=== PATIENT | female | born 1980 | race Caucasian/White ===

== ENCOUNTER 2021-01-25 05:49 | Observation (INO) | payer OTHER, SELFPAY ==
[2019-08-16 11:22] VITALS: BMI 35.0
[2021-01-25] VITALS (16 sets, daily range): BP systolic 92–150; BP diastolic 55–85; PULSE 18–102; RESP 16–18; TEMP 36.3–37.2; O2SAT 93–100; BMI 38.8; BMI 36.8
--- NOTE | 2021-01-25 | GALL_PTH ---
PATIENT: BITA CHAVEZ LOC: MS3 U#:[id number] AGE/SX: 40/F ROOM: GA325 RE01/25/[address]: Dr. Guzman Martel MD : [id number] BED: 1 DIS: 01/26/2021 SPEC #: [id number] RECD: 01/25/21 15:17 STATUS: CB [place] #: [id number] BRITTANY: 01/25/21 00:[address]: Guzman Martel DEPT: SURGICAL PATHOLOGY RECD BY: Saul Burrell ENTERED: 01/28/21 08:42 SP TYPE: DAPHNEY HERNANDEZ DR: Dr. Pankaj Burrell MD Tissues: Gallbladder, NOS Procedures: Surgery Specimen Level III HEADER OPERATION: Laparoscopic cholecystectomy PRE-OP DIAGNOSIS: Cholecystitis TISSUE SUBMITTED: Gallbladder MICROSCOPIC DIAGNOSIS Gallbladder, cholecystectomy: Chronic cholecystitis and cholelithiasis. AM:[place] 01/29/2021 MICROSCOPIC DESCRIPTION Slides are reviewed. GROSS DESCRIPTION Received is one container labeled with the patient's name and designated gallbladder. The specimen consists of a gallbladder measuring 10 cm in length and up to 3 cm in diameter. No kei are noted close to the cystic duct margin. The external surface is pink-sampson, smooth and glistening for the most part. Focally it is granular, hemorrhagic and contains cautery artifact. The gallbladder contains green-yellow mucoid bile and multiple black irregular stones measuring in aggregate 5 x 3.5 x 1 cm and 0.1 to 0.5 cm in greatest dimension. The mucosa is bile-stained and without any mass lesions. The gallbladder wall measures up to 0.3 cm in thickness. Quality Control Analyst sections from the gallbladder and the cystic duct are submitted in one cassette. / SJ:rg 01/28/21 TC:3 CPT: 82735
--- NOTE | 2021-01-25 06:04 | US_ITS ---
STUDY: ABDOMINAL ULTRASOUND - RIGHT UPPER QUADRANT REASON FOR VISIT: Female, 40 years old PAIN TECHNIQUE: Ultrasound evaluation of the right upper quadrant was performed with real-time and static lucas-scale imaging. TECHNICAL QUALITY: Adequate. COMPARISON: None. FINDINGS: Liver: The liver measures 21.1. cm. There is increased echogenicity consistent with fatty infiltration. There is relative sparing adjacent to the gallbladder fossa. The bile ducts are within normal limits. There is hepatic color flow. The direction of portal flow is hepatopetal. There is no demonstrated mass lesion. Gallbladder: There is distended gallbladder. The gallbladder wall measures 3 mm. There is a positive sonographic Burgos''s sign. There is no pericholecystic fluid. There are multiple echogenic structures within the gallbladder, consistent with multiple gallstones. Common Bile Duct (C.B.D.): The common bile duct measures 5 mm. Pancreas: Normal size of the head, body and tail of the pancreas. There is normal echogenicity of the pancreas. There is no demonstrated pancreatic mass or cyst. Right Kidney: Normal size of the right kidney. The right kidney measures 13.0 cm. Normal renal cortex. The right cortex measures 2.5 cm. There is no demonstrated renal mass or cyst. There is 0.6 cm echogenic shadowing stone. There is no right hydronephrosis. US/Gallbladder IMPRESSION: Cholecystitis multiple gallstones and focal tenderness. Hepatomegaly. Fatty infiltration of the liver. Right renal stone. No hydronephrosis. Electronically Signed: Clarke Kang MD at 8:58 EDT , Service support ,
--- NOTE | 2021-01-25 06:06 | EDS_ITS ---
HPI HPI - GI History of Present Illness Chief Complaint: Abd Pain Narrative Narrative: 40-year-old female presenting with right upper quadrant pain. She states she was eating a hero have sob with chicken, cheese, mushrooms and then about an hour later she started developed right upper quadrant pain. She states she has associated symptoms of nausea without vomiting. She does state the pain radiates to the back and even radiates to the left side of her back. Patient has no history of gallbladder disease. She is a family history of kidney stones. She denies urinary symptoms. She denies history of kidney stones in herself. [facility] Medical History Elevated blood pressure, situational Gestational diabetes HISTORY OF CHILD Home Medications azithromycin 250 mg tablet See Rx Instructions PO .COMPLEX #6 tab 08/16/19 [Rx Last Taken Unknown] lisinopril 20 mg PO DAILY 01/25/21 [History Last Taken Unknown] Allergy/AdvReac Type Severity Reaction Status Date / Time albuterol sulfate Allergy Unknown Verified 01/25/21 05:50 [From Ventolin HFA] amoxicillin trihydrate Allergy Unknown Verified 01/25/21 05:50 [From Augmentin] potassium clavulanate Allergy Unknown Verified 01/25/21 05:50 [From Augmentin] Social History Smoking Status: Never smoker alcohol intake: never ROS ROS ED Constitutional Constitutional ED: Denies chills or fever(s) ENT ENT ED: Denies rhinorrhea or sore throat Cardiovascular Cardiovascular: Denies chest pain or palpitations Respiratory/Chest Respiratory/Chest: Denies cough or dyspnea Gastrointestinal Gastrointestinal: Reports abdominal pain and nausea Genitourinary Genitourinary ED: Denies dysuria or hematuria Musculoskeletal Musculoskeletal: Denies arthralgias or myalgias Integumentary Denies Abrasions or rash Neurologic Neurologic: Denies headache(s) or paresthesias Psychiatric Psychiatric: Denies anxiety or depression EXAM Physical Exam Const Vital Signs: 01/25/21 05:51 Temperature 98.8 F Temperature Source Oral Pulse Rate 102 H Respiratory Rate 16 Blood Pressure 150/77 H Blood Pressure Mean 101 Pulse Ox 95 Oxygen Delivery Method Room Air Positive obese General Appearance ED: NAD Nutritional Appearance: obese HEENT Reports moist mucous membranes normocephalic and atraumatic Eyes PERRL and EOMs intact bilaterally General Eye ED: Negative for scleral icterus Resp normal respiratory effort and clear to auscultation bilaterally Cardio regular rate and regular rhythm GI Palpation: tender Burgos's sign Back/Spine no CVA tenderness Neuro Sensorium / Orientation: alert, oriented to person, oriented to place and oriented to time Psych mental status grossly normal and thought process normal Skin Lesions: no lesions Rashes: no rashes MDM MDM MDM Narrative Medical decision making narrative: Patient presenting with right upper quadrant pain. She does not have CVA tenderness on exam. She is not complaining of any urinary complaints. Patient states her pain at occurred about an hour after eating a sublast evening. Patient complains of pain and nausea. She is given morphine and Zofran. Work-up is ordered. Patient has 11.4 white blood cell count but it appears unchanged from previous as he always has an elevated white blood cell count. Currently her only lab back is a urinalysis which shows 500 leukocyte esterase, 10-25 WBCs, 0-5 squamous epithelial cells and 2+ bacteria. Patient does again deny urinary complaints. CMP and lipase are pending. Right upper quadrant ultrasound is pending. Patient signed out to incoming ED doc for follow-up. Lab Data Labs: Laboratory Results - last 24 hr 01/25/21 01/25/21 06:27 06:46 WBC 11.4 H RBC 5.32 Hgb 14.8 Hct 45.6 MCV 85.7 MCH 27.8 MCHC 32.5 RDW Std Deviation 39.8 RDW Coeff of Zuri 12.8 Plt Count 278 MPV 10.5 Immature Gran % (Auto) 0.400 Neut % (Auto) 77.7 H Lymph % (Auto) 14.6 L [place] % (Auto) 6.1 Eos % (Auto) 0.8 Baso % (Auto) 0.4 Absolute Neuts (auto) 8.9 H Absolute Lymphs (auto) 1.67 Nucleated RBC % 0 Urine Color Yellow Urine Clarity Clear Urine pH 7.0 Ur Specific [place] 1.005 Urine Protein Negative Urine Glucose (UA) Normal Urine Ketones Negative Urine Occult Blood 25 H Urine Nitrite Negative Urine Bilirubin Negative Urine Urobilinogen Normal Ur Leukocyte Esterase 500 H Urine RBC 0-5 SEEN Urine WBC 10-25 SEEN Ur Squamous Epith Cells 0-5 SEEN Urine Bacteria 2+ Urine Mucus 0 SEEN Urine Test Negative Discharge Plan Triage Chief Complaint: Abd Pain ED Provider: Geuvara Nuno Dx/Rx/DC Orders Prescriptions: No Action azithromycin 250 mg tablet See Rx Instructions PO .COMPLEX Qty: 6 RF: 0 lisinopril 20 mg Tablet 20 mg PO DAILY RF: 0 Primary Care Provider: Pankaj Burrell
[2021-01-25] MEDS: Ondansetron 4 MG/2 ML Vial IV ×2 (06:29→21:28)
[2021-01-25] MEDS: Morphine 4 MG/ML Syringe IV (06:29)
[2021-01-25 06:37] LABS: Mucous, Urine 0 SEEN /hpf (<or=2+)
[2021-01-25 06:50] LABS: Color, Urine Yellow (Yellow); Glucose, Dipstick Normal (Normal); Ketone-Dipstick Negative (Negative); Leukocyte Esterase-Dipstick 500 /ul (Negative); Nitrite-Dipstick Negative (Negative); Occult Blood-Urine 25 /ul (Negative); Protein-Dipstick Negative (Negative); Specific Gravity, Urine 1.005 (1.002-1.030); Urine Bilirubin Dipstick Negative (Negative); Urine Clarity Clear (Clear); Urine Urobilinogen Normal (Normal)
[2021-01-25 06:55] LABS: Internal QC Validated? YES +Cl - CLEAR BKGD; Pregnancy, Urine Negative Negative
[2021-01-25 06:59] LABS: Bacteria 2+ /hpf (None Seen); Red Blood Cells-Urine 0-5 SEEN /hpf (0-5); Squamous Epithelial Cells - UA 0-5 SEEN /hpf (5-10); White Blood Cells 10-25 SEEN /hpf (0-5)
[2021-01-25 06:59] LABS: Absolute Lymphocyte Count 1.67 X10^3/uL (0.83-4.51); Absolute Neutrophil Count 8.9 X10^3/uL (2.0-7.7); Basophil# 0.04 X10^3/uL; Basophil% 0.4 % (0-1); Eosinophil# 0.09 X10^3/uL; Eosinophils% 0.8 % (0-5); Hematocrit 45.6 % (37-47); Hemoglobin 14.8 g/dL (12.0-15.0); Lymphocyte # 1.67 X10^3/ul (0.83-4.51); Lymphocyte % 14.6 % (19-41); Mean Corp Hgb Conc 32.5 g/dL (32-36); Mean Corpuscular Hgb 27.8 pg (27.0-32.0); Mean Corpuscular Volume 85.7 fL (81-99); Mean Platelet Vol. 10.5 fl (6.2-12.0); Monocyte% 6.1 % (0-10); NRBC Flagged by Analyzer 0 % (0-5); Neutrophil # 8.86 X10^3/uL (2.7-7.7); Neutrophil % 77.7 % (47-70); Platelet Count 278 K/mm3 (150-450); RBC Distribution Width CV 12.8 % (11.6-14.6); RBC Distribution Width SD 39.8 fl (35.1-43.9); Red Blood Count 5.32 M/mm3 (4.2-5.4); White Blood Count 11.4 K/mm3 (4.4-11.0)
[2021-01-25 07:20] LABS: ALB/GLOB Ratio 1.1 RATIO (0.9-2.4); AST(SGOT) 296 U/L (15-37); Alanine Aminotransfer ALT/SGPT 269 U/L (13-56); Albumin, Serum 3.7 g/dL (3.2-5.0); Alkaline Phosphatase 61 U/L (45-117); Anion Gap 7 (5-15); BUN 10 mg/dL (7-18); BUN/Creat Ratio 16.1 RATIO (10-20); Calcium,Total 8.9 mg/dL (8.5-10.1); Chloride 107 mmol/L (98-107); Creatinine, Serum 0.62 mg/dL (0.55-1.02); EST Glomerular Filtration Rate 113 mL/min (>60); Est Glom Filt Rate - Afr Amer 137 mL/min (>60); Estimated Creatinine Clearance 122.89 ml/min; Globulin 3.3 g/dL (2.2-4.2); Glucose 126 mg/dL (74-106); Lipase 142 U/L (73-393); Potassium 3.8 mmol/L (3.5-5.1); Sodium Level 139 mmol/L (136-145)
[2021-01-25] MEDS: metroNIDAZOLE 500 MG/100 ML BAG 100 MG IV ×2 (10:12→23:11)
--- NOTE | 2021-01-25 11:14 | EKG12_ITS ---
Test Reason : PRE OP Blood Pressure : / mmHG Vent. Rate : 074 BPM Atrial Rate : 074 BPM P-R Int : 138 ms QRS Dur : 092 ms QT Int : 394 ms P-R-T Axes : -26 046 035 degrees QTc Int : 437 ms Normal sinus rhythm Normal ECG No previous ECGs available Confirmed by DANII ABRAHAM, MARIA FERNANDA ([id number]), commercial production editor JS WANG ([id number]) on 01/29/2021 9:55:45 AM Referred By: LAI Confirmed By:MARIA FERNANDA FOY MD
--- NOTE | 2021-01-25 12:30 | NURSING ---
Patient off unit to AC at this time.
--- NOTE | 2021-01-25 12:37 | NURSING ---
Spoke with Rosangela in AC and let her know patient needs to have the dose of Cipro hanging out on the SEP. Dr. Martel states he wants her to have this prior to OR.
[2021-01-25] MEDS: Ciprofloxacin 400 MG/200 ML BAG 200 MG IV ×2 (12:46→21:29)
[2021-01-25] MEDS: 0.9% Normal Saline 1,000 ML 75 ML IV ×3 (13:00→23:13)
--- NOTE | 2021-01-25 13:59 | CON.PCM.SX_ITS ---
Assessment & Plan Assessment/Plan (1) Calculus of gallbladder with acute cholecystitis: QUALIFIERS: Biliary obstruction: without biliary obstruction Qualified Code(s): K80.00 - Calculus of gallbladder with acute cholecystitis without obstruction PLAN: Plan is to perform a laparoscopic cholecystectomy. Risk benefits to the procedure to include bleeding infection possible bile leak possible blood clots heart attacks pneumonia strokes up to including of all been reviewed with the patient and her . All their questions asked were answered and they were willing to proceed. HPI Consult Data Date of Consult: 01/25/21 HPI Narrative HPI Narrative: BITA CHAVEZ, is a 40-year-old female presenting with right upper quadrant pain. She states she was eating a hero have sob with chicken, cheese, mushrooms and then about an hour later she started developed right upper quadrant pain. She states she has associated symptoms of nausea without vomiting. She does state the pain radiates to the back and even radiates to the left side of her back. Patient has no history of gallbladder disease. She is a family history of kidney stones. She denies urinary symptoms. She denies history of kidney stones in herself. [facility] Medical History (Updated 01/25/21 @ 14:[address] Guzman Martel MD) Elevated blood pressure, situational Gestational diabetes HISTORY OF CHILD Home Medications azithromycin 250 mg tablet See Rx Instructions PO .COMPLEX #6 tab 08/16/19 [Rx Last Taken Unknown] lisinopril 20 mg PO QHS 01/25/21 [History Last Taken 01/24/21 22:00] Allergy/AdvReac Type Severity Reaction Status Date / Time albuterol sulfate Allergy Unknown Verified 01/25/21 05:50 [From Ventolin HFA] amoxicillin trihydrate Allergy Unknown Verified 01/25/21 05:50 [From Augmentin] potassium clavulanate Allergy Unknown Verified 01/25/21 05:50 [From Augmentin] Social History Smoking Status: Never smoker alcohol intake: never ROS Constitutional Constitutional: Denies anorexia or chills Cardiovascular Cardiovascular: Denies chest pain or chest pain at rest Respiratory/Chest Respiratory/Chest: Denies cough or dyspnea Gastrointestinal Gastrointestinal: Reports abdominal pain Physical Exam Const alert and oriented x3 General Appearance: cooperative HEENT normocephalic and head/scalp atraumatic Eyes PERRL and EOMs intact bilaterally Resp clear to auscultation bilaterally Cardio Rate: regular rate Rhythm: regular rhythm GI soft to palpation Palpation: tender RUQ Lab / Micro Data Result Diagrams: 01/25/21 06:46 01/25/21 06:46 Labs: Laboratory Results - last 24 hr 01/25/21 06:27: Urine Color Yellow, Urine Clarity Clear, Urine pH 7.0, Ur Specific [place] 1.005, Urine Protein Negative, Urine Glucose (UA) Normal, Urine Ketones Negative, Urine Occult Blood 25 H, Urine Nitrite Negative, Urine Bilirubin Negative, Urine Urobilinogen Normal, Ur Leukocyte Esterase 500 H, Urine RBC 0-5 SEEN, Urine WBC 10-25 SEEN, Ur Squamous Epith Cells 0-5 SEEN, Urine Bacteria 2+, Urine Mucus 0 SEEN, Urine Test Negative 01/25/21 06:46: WBC 11.4 H, RBC 5.32, Hgb 14.8, Hct 45.6, MCV 85.7, MCH 27.8, MCHC 32.5, RDW Std Deviation 39.8, RDW Coeff of Zuri 12.8, Plt Count 278, MPV 10.5, Immature Gran % (Auto) 0.400, Neut % (Auto) 77.7 H, Lymph % (Auto) 14.6 L, [place] % (Auto) 6.1, Eos % (Auto) 0.8, Baso % (Auto) 0.4, Absolute Neuts (auto) 8.9 H, Absolute Lymphs (auto) 1.67, Nucleated RBC % 0 01/25/21 06:46: Sodium 139, Potassium 3.8, Chloride 107, Carbon Dioxide 25.0, Anion Gap 7, BUN 10, Creatinine 0.62, Estim Creat Clear Calc 122.89, Est GFR (MDRD) Af Amer 137, Est GFR (MDRD) Non-Af 113, BUN/Creatinine Ratio 16.1, Glucose 126 H, Calcium 8.9, Total Bilirubin 1.40 H, AST 296 H, ALT 269 H, Alkaline Phosphatase 61, Total Protein 7.0, Albumin 3.7, Globulin 3.3, Albumin/Globulin Ratio 1.1, Lipase 142 Radiology Impression Gallbladder Ultrasound 01/25/21 06:04 IMPRESSION: Cholecystitis multiple gallstones and focal tenderness. Hepatomegaly. Fatty infiltration of the liver. Right renal stone. No hydronephrosis. Electronically Signed: Clarke Kang MD at 8:58 EDT , Service support ,
[2021-01-25] MEDS: Lactated Ringers 1,000 ML 100 ML IV (14:45)
[2021-01-25] MEDS: Bupivacaine Mpf 0.5% 30 ML VIAL (15:07)
--- NOTE | 2021-01-25 15:27 | PCM.OPRPT ---
Problems Associated Problem List Diagnoses (1) Calculus of gallbladder with acute cholecystitis: Report of Operation Date of Procedure: 01/25/21 Pre-Operative Diagnosis: Acute cholecystitis with cholelithiasis Post-Operative Diagnosis: Same Surgery/Procedure Performed:: Laparoscopic cholecystectomy Surgeon: Guzman Martel Type of Anesthesia: General Anesthesiologist: Toy Clark Specimen's removed: Gallbladder Estimated Blood Loss (mL): < 25 cc Description of Procedure: Patient was brought into the operating room. Placed in the supine position. Under excellent general endotracheal ovation abdomen was sterilely prepped and draped in usual fashion. Local was injected above the umbilicus. Curvilinear incision was made dissection was carried down to the fascia the fascia was grasped with Delmar varies needle was placed inside the abdomen the abdomen was insufflated to 15 torr. Patient was placed in the head up position rotated to the left. A subxiphoid #5 trocar was placed, inferior to this another #5 trocar was placed, laterally a #5 trocar was placed. All these under direct visualization without injury to underlying structures. I grabbed the fundus of the gallbladder and retracted in the cephalad direction there was some firmness to the gallbladder but overall it was soft very early acute cholecystitis infundibulum was grasped retracted laterally I dissected down towards the cystic duct it was dissecting in a deep hole I did not feel comfortable doing this I dissected what I thought was the cystic artery and cystic duct but then a larger structure to the right which I thought was going to be the right hepatic artery I thought the better part of valor here was to just do this dome down. I stopped the dissection here I went and grasped the falciform ligament and then started from the dome down and used electrocautery to detach the gallbladder from the liver edge. At some point residential coming down I released the falciform ligament and I placed a #5 liver retractor in so that I could get better access to the junction of the liver and the gallbladder this worked out quite nice I dissected all the way down once I got down to the area that was difficult I knew I was not going to be able to shoot a cholangiogram I thought that the best thing to do here was placed looped 0 Vicryl ties down around the cystic duct I placed 2 of these and then transected the gallbladder. I had not lost a lot of blood I was worried that if I dissected any further down here I was going to cause injury and I just did not want to do that. Gallbladder was placed in a specimen bag was delivered through the umbilical port without difficulty. Multiple small stones were located within the gallbladder itself. I inspected my ties they were in good no signs of bleeding I did not see anything that looked like a bile leak and I felt that I was far enough away from the common bile duct at this juncture. I removed my trochars. Thornton stasis was noted. I closed the fascia of the umbilical port with a [id number] stitch of 0 Vicryl. Subcu here was closed with 3-0 Vicryl. Skin was closed with interrupted 4-0 Monocryl. Steri-Strips were applied sterile dressings were applied and the patient tolerated the procedure well. She will be admitted to the hospital. I am going to check liver function test on her tomorrow if her total bilirubin is elevated in addition to the alkaline phosphatase again I have to work her up for retained stone. I discussed all this with the . Due to her size I am going to start her on subcu Lovenox postoperatively. Admit VTE Documentation VTE Present on Admission: No VTE Mechan Device Prophylaxis: SCD's VTE Pharm Prophylaxis ordered?: No Reason prophylaxis not ordered:: Treatment Not Indicated
[2021-01-25] MEDS: HYDROmorphone 0.5 MG/0.5 ML SYRINGE IV (21:28)
[2021-01-25] MEDS: 0.9% Saline Lock 10 ML Syringe IV (21:29)
[2021-01-26 01:00] VITALS: TEMP 37.2
[2021-01-26 01:43] VITALS: BP 97/82; PULSE 70; RESP 16; TEMP 37.7; O2SAT 96
[2021-01-26] MEDS: metroNIDAZOLE 500 MG/100 ML BAG 100 MG IV (06:00)
[2021-01-26 06:03] VITALS: BP 101/62; PULSE 81; RESP 16; TEMP 37.3; O2SAT 95
[2021-01-26 06:35] LABS: Absolute Lymphocyte Count 2.84 X10^3/uL (0.83-4.51); Absolute Neutrophil Count 8.5 X10^3/uL (2.0-7.7); Basophil# 0.06 X10^3/uL; Basophil% 0.5 % (0-1); Eosinophils% 0.8 % (0-5); Hematocrit 45.9 % (37-47); Hemoglobin 14.6 g/dL (12.0-15.0); Lymphocyte # 2.84 X10^3/ul (0.83-4.51); Lymphocyte % 23.1 % (19-41); Mean Corp Hgb Conc 31.8 g/dL (32-36); Mean Corpuscular Hgb 27.8 pg (27.0-32.0); Mean Corpuscular Volume 87.3 fL (81-99); Mean Platelet Vol. 10.9 fl (6.2-12.0); Monocyte# 0.74 X10^3/uL; NRBC Flagged by Analyzer 0 % (0-5); Neutrophil # 8.51 X10^3/uL (2.7-7.7); Neutrophil % 69.3 % (47-70); Platelet Count 268 K/mm3 (150-450); RBC Distribution Width CV 13.2 % (11.6-14.6); RBC Distribution Width SD 41.7 fl (35.1-43.9); Red Blood Count 5.26 M/mm3 (4.2-5.4); White Blood Count 12.3 K/mm3 (4.4-11.0)
[2021-01-26 06:45] LABS: International Normalized Ratio 1.1; Prothrombin Time (Protime)PT. 13.4 SECONDS (11.7-14.9)
[2021-01-26 07:09] LABS: AST(SGOT) 186 U/L (15-37); Alanine Aminotransfer ALT/SGPT 427 U/L (13-56); Albumin, Serum 3.4 g/dL (3.2-5.0); Alkaline Phosphatase 73 U/L (45-117); Amylase 37 U/L (25-115); Anion Gap 7 (5-15); BUN 6 mg/dL (7-18); BUN/Creat Ratio 10.7 RATIO (10-20); Calcium,Total 8.4 mg/dL (8.5-10.1); Chloride 109 mmol/L (98-107); Creatinine, Serum 0.56 mg/dL (0.55-1.02); EST Glomerular Filtration Rate 127 mL/min (>60); Est Glom Filt Rate - Afr Amer 154 mL/min (>60); Estimated Creatinine Clearance 136.06 ml/min; Globulin 3.4 g/dL (2.2-4.2); Glucose 91 mg/dL (74-106); Lipase 81 U/L (73-393); Potassium 3.5 mmol/L (3.5-5.1); Protein, Total 6.8 g/dL (6.4-8.2); Sodium Level 139 mmol/L (136-145)
[2021-01-26] MEDS: oxyCODONE 5 MG Tablet PO (07:39)
--- NOTE | 2021-01-26 09:55 | DCINST_ITS ---
Discharge Instructions Procedure Gallbladder Diet Discharge Diet: Light diet - advance as tolerated Activity Discharge Activity: May Not Drive (for 2-3 days or while taking narcotic pain medications.) and - (Do not drive, work heavy equipment or sign legal documents for 24 hours.) May shower in (days): 1 (with the bandage in place.) Additional Activity Instructions:: Pain medication may cause nausea. You should typically eat light foods as you take your pain medications. Pain medication may also cause constipation. If this is a problem for you, please discuss with your doctor. Dressing / Incision Call your doctor if your incision/area has: Continuous Slow Oozing, Sudden Increased Bleeding, Increased Pain/ Swelling, Increased Redness and Foul Smelling Discharge Call your doctor if you observe: Fever of 101 or Higher Suture Line Care: Avoid Pulling/Pushing and Avoid Pinching/Bending Additional Dressing/Incision Instructions:: Leave operative bandaids on for 2 days. When you remove dressing, leave Steri-Strips on until your follow-up appointment, or until the Steri-Strips fall off on their own. Follow Up Care Please Follow Up With: Consuelo Alegria PA-C When: Call office to schedule an appointment to be seen in 7 days after surgery. Test Results: Test results from this visit will be discussed in further detail at your follow-up appointment, if applicable. Discharge Plan Admission Admit Date/Time: 01/25/21 15:40 Attending Provider: Guzman Martel Primary Care Provider: Pankaj Burrell Discharge Orders/Prescriptions Prescriptions: New oxycodone-acetaminophen [Percocet] 5-325 mg tablet 1 tab PO Q4H PRN (Reason: pain) 5 Days Qty: 20 RF: 0 Continued azithromycin 250 mg tablet See Rx Instructions PO .COMPLEX Qty: 6 RF: 0 lisinopril 20 mg Tablet 20 mg PO QHS RF: 0 Referrals / Follow Up: Pankaj Burrell MD [Primary Care Provider] - Consuelo Alegria PA-C [PHYSICIAN PRODUCT SAFETY TECHNICAL ASSISTANT] -
--- NOTE | 2021-01-26 09:56 | PCM.DC.SUM ---
Providers Date of Admission: 01/25/21 Primary Care Physician: Dr. Pankaj Burrell MD Reason For Visit: CALCULOUS CHOLECYSTITIS Diagnosis Discharge Diagnosis (1) Calculus of gallbladder with acute cholecystitis: Status: Acute Code(s): K80.00 - Calculus of gallbladder with acute cholecystitis without obstruction Qualifiers: Biliary obstruction: without biliary obstruction Qualified Code(s): K80.00 - Calculus of gallbladder with acute cholecystitis without obstruction Medications at Discharge Home Medications azithromycin 250 mg tablet See Rx Instructions PO .COMPLEX #6 tab 08/16/19 lisinopril 20 mg PO QHS 01/25/21 oxycodone-acetaminophen [Percocet] 1 tab PO Q4H PRN 5 Days #20 tab 01/26/21 Weight / BMI Weight Weight: 242 lb 8 oz Body Mass Index (BMI) 36.8 ABG / Lab / Microbiology Data Result Diagrams: 01/26/21 05:15 01/26/21 05:15 Laboratory: Laboratory Results - last 24 hr 01/26/21 05:15: WBC 12.3 H, RBC 5.26, Hgb 14.6, Hct 45.9, MCV 87.3, MCH 27.8, MCHC 31.8 L, RDW Std Deviation 41.7, RDW Coeff of Zuri 13.2, Plt Count 268, MPV 10.9, Immature Gran % (Auto) 0.300, Neut % (Auto) 69.3, Lymph % (Auto) 23.1, [place] % (Auto) 6.0, Eos % (Auto) 0.8, Baso % (Auto) 0.5, Absolute Neuts (auto) 8.5 H, Absolute Lymphs (auto) 2.84, Nucleated RBC % 0 01/26/21 05:15: PT 13.4, INR 1.1 01/26/21 05:15: Sodium 139, Potassium 3.5, Chloride 109 H, Carbon Dioxide 23.0, Anion Gap 7, BUN 6 L, Creatinine 0.56, Estim Creat Clear Calc 136.06, Est GFR (MDRD) Af Amer 154, Est GFR (MDRD) Non-Af 127, BUN/Creatinine Ratio 10.7, Glucose 91, Calcium 8.4 L, Total Bilirubin 1.00, AST 186 H, ALT 427 H, Alkaline Phosphatase 73, Total Protein 6.8, Albumin 3.4, Globulin 3.4, Albumin/Globulin Ratio 1.0, Amylase 37, Lipase 81 D/C Instructions Discharge Diet: Light diet - advance as tolerated May shower in (days): 1 (with the bandage in place.) Additional Activity Instructions: Pain medication may cause nausea. You should typically eat light foods as you take your pain medications. Pain medication may also cause constipation. If this is a problem for you, please discuss with your doctor. Call your doctor if your incision/area has: Continuous Slow Oozing, Sudden Increased Bleeding, Increased Pain/ Swelling, Increased Redness and Foul Smelling Discharge Call your doctor if you observe: Fever of 101 or Higher Suture Line Care: Avoid Pulling/Pushing and Avoid Pinching/Bending Additional Dressing/Incision Instructions: Leave operative bandaids on for 2 days. When you remove dressing, leave Steri-Strips on until your follow-up appointment, or until the Steri-Strips fall off on their own. Please Follow Up With: Consuelo Alegria PA-C When: Call office to schedule an appointment to be seen in 7 days after surgery. Meaningful Use Info Meaningful Use Diagnoses (Choose all that apply): None applicable Discharge Plan Admission Admit Date/Time: 01/25/21 15:40 Attending Provider: Guzman Martel Primary Care Provider: Pankaj Burrell Discharge Orders/Prescriptions Prescriptions: New oxycodone-acetaminophen [Percocet] 5-325 mg tablet 1 tab PO Q4H PRN (Reason: pain) 5 Days Qty: 20 RF: 0 Continued azithromycin 250 mg tablet See Rx Instructions PO .COMPLEX Qty: 6 RF: 0 lisinopril 20 mg Tablet 20 mg PO QHS RF: 0 Referrals / Follow Up: Pankaj Burrell MD [Primary Care Provider] - Consuelo Alegria PA-C [PHYSICIAN [employer]ER[employer]S] -
[2021-01-26] MEDS: Ciprofloxacin 400 MG/200 ML BAG 200 MG IV (10:27)
[2021-01-26 12:35] VITALS: BP 126/76; PULSE 85; RESP 16; TEMP 36.7; O2SAT 96
== END 2021-01-26 13:35 | disposition home or self-care (01) ==
LOC: ED 10:08 → MS3 15:56
PROVIDERS: Admitting Provider Surgery; Emergency Provider Student in an Organized Health Care Education/Training Program; PCP Family Medicine; Visit Provider Surgery
PROC: (CPT 47562; principal; 2021-01-25 13:55)
DX: K80.12 Calculus of gallbladder with acute and chronic cholecystitis without obstruction (principal); R03.0 Elevated blood-pressure reading, without diagnosis of hypertension; Z79.899 Other long term (current) drug therapy
CPT/HCPCS: 47562; 36415; 76705; 80053; 81001; 81025; 82150; 83690; 85025; 85610; 88304; 93005; 96361; 96365; 96366; 96367; 96375; 96376; 99218; 99251; 99285; J7030; J7120; A4216; G0378; G0463; J0744; J2405

== ENCOUNTER 2023-05-17 08:16 | Emergency (ER) | payer OTHER, SELFPAY ==
[2023-05-17 08:17] VITALS: BP 143/97; PULSE 94; RESP 16; TEMP 36.4; O2SAT 96; BMI 38.0
--- NOTE | 2023-05-17 09:04 | RAD_ITS ---
STUDY: X-RAY - PELVIS REASON FOR EXAM: Female, 42 years old. injury TECHNIQUE: One view of the pelvis was obtained. COMPARISON: None. FINDINGS: There is a non-specific bowel gas pattern. Normal visualized soft tissue structures. Normal bilateral iliac wings, sacroiliac joints and visualized sacrum. Normal visualized bilateral superior and inferior pubic rami. Normal pubic symphysis. Normal ischial tuberosities. Normal visualized right femoral head. Normal right acetabulum. Normal right hip joint. Normal visualized left femoral head. Normal left acetabulum. Normal left hip joint. RAD/Pelvis 1 or 2 Views IMPRESSION: Normal x-ray examination of the pelvis. Electronically Signed: Soto Delcid MD at 10:15 [facility] ,
--- NOTE | 2023-05-17 09:56 | EDS_ITS ---
HPI History of Present Illness Chief Complaint: Lower Extremity Injury Informant: patient and family Narrative Narrative: 42-year-old female states that last night she was going up the stairs when her foot slipped and she fell down. She states that she had pain posterior right hamstring lower buttock region. She was able to ambulate when she woke up this morning the pain was worse. She notes it radiates down her leg to her right big toe. She denies any significant bruising or swelling. She denies any muscle strength loss. No paresthesias. No bowel or bladder dysfunction. PFSH PFS Medical History Elevated blood pressure, situational Gestational diabetes HISTORY OF CHILD Home Medications azithromycin 250 mg tablet See Rx Instructions PO .COMPLEX #6 tabs 08/16/19 [Rx Last Taken Unknown] oxycodone-acetaminophen 5 mg-325 mg tablet (Percocet) 1 tab PO Q4H PRN pain 5 days #20 tabs 01/26/21 [Rx Last Taken Unknown] lisinopril 30 mg tablet 30 mg PO DAILY 08/23/21 [History Last Taken Unknown] cyclobenzaprine 10 mg tablet 10 mg PO TID PRN Muscle Spasm #15 TABLETS 05/17/23 [Rx Last Taken Unknown] oxycodone-acetaminophen 5 mg-325 mg tablet 1 tab PO Q6H PRN PRN Pain 3 days #12 TABLETS 05/17/23 [Rx Last Taken Unknown] Allergy/AdvReac Type Severity Reaction Status Date / Time albuterol sulfate Allergy Unknown Verified 05/17/23 08:17 [From Ventolin HFA] amoxicillin trihydrate Allergy Unknown Verified 05/17/23 08:17 [From Augmentin] potassium clavulanate Allergy Unknown Verified 05/17/23 08:17 [From Augmentin] Social History Smoking Status: Never smoker alcohol intake: never ROS ROS ED Constitutional Constitutional ED: Denies chills or weight loss Eyes Eyes: Denies change in vision or diplopia ENT ENT ED: Denies ear pain, rhinorrhea or sore throat Cardiovascular Cardiovascular: Denies chest pain, orthopnea, palpitations or racing heartbeat Respiratory/Chest Respiratory/Chest: Denies cough, dyspnea or orthopnea Gastrointestinal Gastrointestinal: Denies abdominal pain, diarrhea, nausea or vomiting Genitourinary Genitourinary ED: Denies dysuria, hematuria or urinary frequency Musculoskeletal Musculoskeletal: Reports other Details: See history of present illness ; Denies arthralgias, back pain or myalgias Integumentary Denies abscess or rash Neurologic Neurologic: Denies headache(s) or weakness Psychiatric Psychiatric: Denies anxiety, depression, suicidal ideation or suicidal thoughts Endocrine Endocrinology: Denies polydipsia, polyphagia or polyuria Allergic/Immunologic Allergic/Immunologic ED: Denies mouth swelling, tongue swelling or urticaria EXAM Physical Exam Const Vital Signs: 05/17/23 08:17 Temperature 97.6 F L Temperature Source Temporal Pulse Rate 94 Respiratory Rate 16 Blood Pressure 143/97 H Blood Pressure Mean 112 Pulse Ox 96 Oxygen Delivery Method Room Air Positive well nourished, well developed and obese General Appearance ED: well developed Nutritional Appearance: obese HEENT Reports normocephalic, head/scalp atraumatic and moist mucous membranes Eyes PERRL and EOMs intact bilaterally Neck no lymphadenopathy, supple and no JVD Resp normal respiratory effort and clear to auscultation bilaterally Cardio regular rate, regular rhythm and no murmurs GI normal to inspection, nondistended, normoactive bowel sounds and non-tender Palpation: soft Back/Spine no CVA tenderness and normal ROM Back/Spine Narrative: Specifically there is no lumbar paraspinal musculature tenderness. Nose midline tenderness. Extremity Extremity Narrative: Patient has tenderness to palpation of the proximal upper posterior right thigh lower right gluteal thigh interface. +2 patellar and Achilles reflexes. Sensation intact. General Extremety ED: Negative for edema General Extremity: Negative for edema Neuro oriented x3 and CN's II-XII intact bilaterally Sensorium / Orientation: alert Motor Exam: strength 5/5 throughout Psych mental status grossly normal Mood & Affect: Negative for depressed or tearful Skin no rashes or lesions noted and no wounds MDM MDM MDM Narrative Medical decision making narrative: My independent interpretation of the pelvis x-ray is no acute fracture. Clinically I think this is musculoskeletal in nature. There is a radicular component questionable due to muscular spasm. Would recommend heat anti- inflammatory muscle relaxant and pain medication as needed. Return if worsening or concerns Discharge Plan Triage Chief Complaint: Lower Extremity Injury ED Provider: Guzman Hughes Dx/Rx/DC Orders Clinical Impression: Right sided sciatica, Right hamstring muscle strain, Fall Instructions: ED Muscle Strain, Extremity Prescriptions: New cyclobenzaprine [cyclobenzaprine] 10 mg tablet 10 mg PO TID PRN (Reason: Muscle Spasm) Qty: 15 0RF oxycodone-acetaminophen [oxycodone-acetaminophen] 5-325 mg tablet 1 tab PO Q6H PRN PRN (Reason: Pain) 3 Days Qty: 12 0RF No Action azithromycin 250 mg tablet See Rx Instructions PO .COMPLEX Qty: 6 0RF Rx Instructions: take 500 mg today (day 1), then 250 mg for 4 days (days 2-5) PO lisinopril 30 mg tablet 30 mg PO DAILY oxycodone-acetaminophen [Percocet] 5-325 mg tablet 1 tab PO Q4H PRN (Reason: pain) 5 Days Qty: 20 0RF Primary Care Provider: Pankaj Burrell Referrals: Pankaj uBrrell MD [Primary Care Provider] - Disposition Disposition: Home, Self Care
== END 2023-05-17 10:15 | disposition home or self-care (01) ==
PROVIDERS: Emergency Provider Emergency Medicine; PCP Family Medicine; Visit Provider Emergency Medicine
DX: M54.31 Sciatica, right side (principal); S76.311A Strain of muscle, fascia and tendon of the posterior muscle group at thigh level, right thigh, initial encounter; E66.9 Obesity, unspecified; W10.9XXA Fall (on) (from) unspecified stairs and steps, initial encounter
CPT/HCPCS: 72170; 99282

== ENCOUNTER → 2024-02-03 | Outpatient (CLI) | payer OTHER, SELFPAY ==
--- NOTE | 2024-02-03 13:59 | NEURO ---
NCS and/or EMG Patient Report Ordering Doctor: Pankaj Burrell DATE OF SERVICE: 02/03/24 Mariah is for electrodiagnostic testing of the upper limbs. She reports numbness and tingling in both hands, primarily in digits 1-3. Electrodiagnostic findings: Median motor nerve demonstrates prolonged latency bilaterally with normal amplitude and reduced conduction velocity. Normal ulnar motor response bilaterally, including conduction across the elbow. Normal median and ulnar F?waves. Prolonged median sensory latency at the wrist bilaterally. Needle EMG testing was performed the upper limbs. All muscles tested showed no evidence of denervation with normal motor unit action potentials Electrodiagnostic impression: This is an abnormal study in the upper limbs 1. Electrodiagnostic findings demonstrate bilateral median mononeuropathy. This is consistent with a moderate bilateral carpal tunnel syndrome. Multi Select Codes Neurology Neurology Interp Codes: 29947-14 Musc test done w/n test comp (interp) (2) and 77284-49 Nrv cndj test 9-10 studies (interp)
== END | disposition home or self-care (01) ==
LOC: PSN 12:04
PROVIDERS: PCP Family Medicine; Referring Provider Family Medicine; Visit Provider Family Medicine
DX: R00.0 Tachycardia, unspecified (principal); R20.2 Paresthesia of skin
CPT/HCPCS: 95886; 95911